=== PATIENT | female | born 1945 | race Caucasian/White ===

== ENCOUNTER 2022-10-07 19:44 | Emergency (ER) | payer MEDICARE, BC ==
[~2022-10-07] VITALS: Ht 162.6 cm; Wt 45.4 kg
[~2022-10-07 19:44] MED LIST: HYDR50TA4 PO; INSU100C5 IJ; POTA99TA14 PO
--- NOTE | 2022-10-07 20:05 | NUR ---
COVID SWAB COLLECTED AND SENT TO LAB
[2022-10-07] MEDS ORDERED: DEXTROSE 50%-WATER 50 ML DISP.SYRIN ONE ×3 (20:09→21:29)
--- NOTE | 2022-10-07 20:18 | NUR ---
18GA TO RIGHT WRIST ESTABLISHED
--- NOTE | 2022-10-07 20:20 | NUR ---
BS=89, GIVEN 1 AMP D50
--- NOTE | 2022-10-07 20:20 | NUR ---
BLOOD WORK COLLECTED AND SENT TO LAB
--- NOTE | 2022-10-07 20:25 | NUR ---
20GA TO LEFT WRIST ESTABLISHED
[2022-10-07] MEDS ORDERED: DEXTROSE 50%-WATER 50 ML DISP.SYRIN IV ONE ×3 (20:30→22:00)
--- NOTE | 2022-10-07 20:30 | NUR ---
URINE COLLECTED AND SENT TO LAB
--- NOTE | 2022-10-07 20:47 | NUR ---
TO CT FOR CT-HEAD, CT-ANGIO; ACCOMPANIED BY TECH
[2022-10-07] MEDS ORDERED: ONDANSETRON HCL/PF 4 MG/2 ML VIAL ONE (20:53)
[2022-10-07] MEDS ORDERED: ONDANSETRON HCL/PF 4 MG/2 ML VIAL IV ONE (21:00)
[2022-10-07 21:21] LABS: SERUM AMMONIA 35 umol/L (11-32)
--- NOTE | 2022-10-07 21:21 | NUR ---
Patient AOx4 able to express her concerns. Patient is able to provide health history.Aware of her situation, discussed plan of care, patient verbalized agreement.
[2022-10-07 21:26] LABS: BILIRUBIN,URINE NEGATIVE (NEGATIVE); COLOR,URINE YELLOW (YELLOW); LEUKOCYTE ESTERASE ,URINE NEGATIVE (NEGATIVE); NITRITE, URINE NEGATIVE (NEGATIVE); PROTEIN,URINE NEGATIVE (NEGATIVE); UGLUCOSE TRACE mg/dL (NEGATIVE); UROBILINOGEN,URINE 0.2 EU/dL (0.2)
--- NOTE | 2022-10-07 21:30 | NUR ---
BS=MD Miranda NOTIFIED
[2022-10-07 21:35] LABS: BASOPHILS # (AUTO) 0.1 K/uL (0.0-0.2); EOSINOPHILS % (AUTO) 3.7 % (0.0-6.0); HEMATOCRIT 41 % (33-45); HEMOGLOBIN 13.6 g/dL (11.5-14.8); LYMPHOCYTES # (AUTO) 2.9 K/uL (0.8-4.8); MEAN CORPUSCULAR HGB CONC 33 g/dl (31.0-36.0); MEAN CORPUSCULAR VOLUME 96 fL (82-100); MONOCYTES % (AUTO) 14.5 % (2.0-12.0); NEUTROPHILS # (AUTO) 8.1 K/uL (1.8-8.9); NEUTROPHILS % (AUTO) 59.8 % (43.0-81.0); PLATELET COUNT (AUTO) 227 K/uL (150-450); RED BLOOD CELL COUNT(AUTO) 4.22 MIL/uL (4.0-5.2); WHITE BLOOD COUNT (AUTO) 13.6 K/uL (4.3-11.0)
[2022-10-07 21:38] LABS: ALANINE AMINOTRANSFERASE 37 U/L (12-78); ALBUMIN 3.6 g/dL (3.4-5.0); ALKALINE PHOSPHATASE 74 U/L (46-116); ASPARTATE AMINOTRANSFERASE 36 U/L (15-37); BILIRUBIN,DIRECT 0.1 mg/dL (0.0-0.2); BILIRUBIN,TOTAL 0.4 mg/dL (0.2-1.0); CARBON DIOXIDE 27 mmol/L (21-32); CHLORIDE 105 mmol/L (98-107); CREATININE 1.1 mg/dL (0.6-1.3); GLUCOSE 143 mg/dL (74-106); SODIUM SERUM 141 mmol/L (136-145); UREA NITROGEN, BLOOD 30 mg/dL (7-18)
[2022-10-07 21:42] LABS: ALCOHOL, BLOOD < 3 mg/dL (0-0); POTASSIUM 2.8 mmol/L (3.5-5.1)
[2022-10-07 21:48] LABS: BACTERIA,URINE None seen /HPF (None Seen); SQUAMOUS EPITHELIAL CELL,UR 0-2 /HPF (None Seen); WBC,URINE 0-2 /HPF (0-3)
[2022-10-07 22:08] LABS: THYROID STIMULATING HORMONE 4.101 uIU/mL (0.358-3.74)
[2022-10-07] MEDS ORDERED: ONDANSETRON HCL/PF 4 MG/2 ML VIAL IVP PRN (22:30)
[2022-10-07] MEDS ORDERED: ZOLPIDEM TARTRATE 5 MG TABLET PO PRN (22:30)
[2022-10-07] MEDS ORDERED: MAGNESIUM HYDROXIDE 30 ML UDC PO PRN (22:30)
[2022-10-07] MEDS ORDERED: DEXTROSE 50%-WATER 50 ML DISP.SYRIN IV PRN (22:30)
[2022-10-07] MEDS ORDERED: IV D5/0.45 NACL 1,000 ML IV PRN (22:30)
[2022-10-07] MEDS ORDERED: IV PREMIX D5 1/2NS + KCL 1,000 ML IV ONE ×2 (22:30→22:31)
[2022-10-07] MEDS ORDERED: ACETAMINOPHEN 325 MG TABLET PO PRN (22:30)
[2022-10-07] MEDS ORDERED: Z GUARD REMEDY 4 OZ OINT TP PRN (22:30)
[2022-10-07] MEDS ORDERED: MAG HYDROX/AL HYDROX/SIMETH 30 ML UDC PO PRN (22:30)
--- NOTE | 2022-10-08 00:14 | NUR ---
Patient does not wish to proceed with medical care recommended by Dr. Gonzalez. Patient given information related to possible complications, up to and including , which could occur as a result of leaving the hospital at this time. Patient verbalizes understanding of risks involved due to leaving against medical advice. Patient has signed AMA form.
--- NOTE | 2022-10-08 00:16 | NUR ---
Patient insisted on going home, educated patient and on importance of following MDs orders. Patient states she has been through this many times and would like to go home and take care of herself. Advised to call 911 in case of an emergency or go to nearest ER. AMA signed, Sheyla Gonzalez aware.
[2022-10-08 00:23] VITALS: BP 120/64
[2022-10-08] MEDS ORDERED: BLOOD SUGAR DIAGNOSTIC 1 EACH STRIP IN SCH (01:00)
[2022-10-08] MEDS ORDERED: HYDROCHLOROTHIAZIDE 50 MG TABLET PO SCH (09:00)
--- NOTE | 2022-10-17 14:37 | NUR ---
LATE ENTRY: PARVEZ NORMAN DISCONTINUED ALL FLUIDS AT 0020 BUT DOCUMENTED IT 1220(NOT TIME).
== END 2022-10-08 00:27 | disposition left against medical advice (07) ==
LOC: ER 19:52
DX: E11.649 Type 2 diabetes mellitus with hypoglycemia without coma (principal); E87.6 Hypokalemia; I10 Essential (primary) hypertension; E11.9 Type 2 diabetes mellitus without complications; Z88.8 Allergy status to other drugs, medicaments and biological substances
CPT/HCPCS: 99285; 96365; 96375; 93005; 71045; 96376; 70450; 82140; 85025; 80048; 87040 ×2; 83605; 80076; 81001; 36415; 84443; 84484; 85730; 87081; 82962 ×4; 80320; 80307; J2405; J3490 ×2; A4223; G0480